=== PATIENT | female | born 1995 | race Native Hawaiian/Other Pacific Islander ===

== ENCOUNTER 2018-04-09 13:58 | Outpatient (CLI) | payer OTHER | END 2018-04-09 13:59 | disposition home or self-care (01) | LOC: LAB 13:58 | PROVIDERS: ATTEND Obstetrics & Gynecology | DX: Z36.9 Encounter for antenatal screening, unspecified (principal) | CPT/HCPCS: 36415; 82950; 85018; 86850 ==

== ENCOUNTER 2018-05-10 06:08 | Outpatient (CLI) | payer OTHER ==
[2018-05-10] MEDS ORDERED: HYDROcod/ACETAM 5/325 MG TABLET PO SCH (07:00)
[2018-05-10 07:07] LABS: RUPTURE OF MEMBRANES PLUS NEGATIVE (NEGATIVE)
[2018-05-10 07:31] VITALS: BP 103/71
[2018-05-10 08:10] LABS: BILIRUBIN,URINE NEGATIVE (NEGATIVE); GLUCOSE, URINE (UA) NEGATIVE (NEGATIVE); KETONES,URINE (UA) NEGATIVE (NEGATIVE); LEUKOCYTE ESTERASE, URINE NEGATIVE (NEGATIVE); NITRITE,URINE NEGATIVE (NEGATIVE); OCCULT BLOOD,URINE NEGATIVE (NEGATIVE); PROTEIN,URINE NEGATIVE (NEGATIVE); UROBILINOGEN,URINE 1 (NORMAL) E.U./dL (NORMAL)
[2018-05-10 08:18] LABS: CLARITY,URINE CLEAR (CLEAR)
[2018-05-10 08:21] LABS: BACTERIA,URINE Rare /HPF (None Seen); RBC,URINE None Seen /HPF (0-5); SQUAMOUS EPITHELIAL CELL,UR FEW Squamous (<= Few)
== END 2018-05-10 08:00 | disposition home or self-care (01) ==
LOC: WFO 06:08 → FBP 06:10 → WFO 08:00
PROVIDERS: ATTEND Obstetrics & Gynecology
DX: O26.893 Other specified pregnancy related conditions, third trimester (principal); R10.2 Pelvic and perineal pain; Z3A.37 37 weeks gestation of pregnancy
CPT/HCPCS: 81001; 84112; 87797; 99213; A9270; 87086

== ENCOUNTER 2018-05-19 06:55 | Inpatient (IN) | payer OTHER ==
[2018-05-19] MEDS ORDERED: SODIUM CHLORIDE FLUSH 0.9% 10 ML SYRINGE ONE (07:02)
[2018-05-19] MEDS ORDERED: SODIUM CHLORIDE FLUSH 0.9% 10 ML SYRINGE IVP PRN (07:15)
[2018-05-19] MEDS ORDERED: PENICILLIN G POTASSIUM 5,000,000 UNIT in SODIUM CHLORIDE 0.9% MINIBAG 100 ML IV ONE (07:15)
[2018-05-19] MEDS ORDERED: fentaNYL 100 MCG/2 ML VIAL IVP PRN (07:15)
[2018-05-19] MEDS ORDERED: LACTATED RINGERS 1,000 ML IV ONE (07:24)
[2018-05-19 07:27] LABS: BASOPHILS # (AUTO) 0.1 10^3/uL (0.0-0.1); BASOPHILS % (AUTO) 1.1 %; EOSINOPHILS # (AUTO) 0.4 10^3/uL (0.0-0.7); EOSINOPHILS % (AUTO) 3.3 %; HGB - HEMOGLOBIN 10.8 g/dL (12.0-16.0); LYMPHOCYTES % (AUTO) 25.2 %; MEAN CORPUSCULAR HEMOGLOBIN 25.5 pg (27.0-31.0); MEAN CORPUSCULAR HGB CONC 32.9 g/dL (32.0-36.0); MEAN CORPUSCULAR VOLUME 77.6 fL (81.0-99.0); MEAN PLATELET VOLUME 6.7 fL (7.9-10.8); MONOCYTES # (AUTO) 0.9 10^3/uL (0.0-1.0); MONOCYTES % (AUTO) 7.4 %; NEUTROPHILS # (AUTO) 7.6 10^3/uL (1.5-6.6); PLT - PLATELET COUNT 406 10^3/uL (130-450); RED BLOOD COUNT 4.24 10^6/uL (4.20-5.40); RED CELL DISTRIBUTION WIDTH 14.9 % (12.0-15.0); WHITE BLOOD COUNT 12.1 x10^3/uL (4.8-10.8)
[2018-05-19] MEDS ORDERED: LACTATED RINGERS 1,000 ML IV SCH (08:00)
[2018-05-19] MEDS ORDERED: SODIUM CHLORIDE FLUSH 0.9% 10 ML SYRINGE IVP SCH (09:00)
[2018-05-19] MEDS ORDERED: miSOPROStol 200 MCG TABLET ONE (09:10)
[2018-05-19] MEDS ORDERED: MINERAL OIL LIGHT 10 ML MC ONE (09:10)
[2018-05-19] MEDS ORDERED: OXYTOCIN/SODIUM CHLORIDE 500 ML IV ONE (09:10)
[2018-05-19] MEDS ORDERED: LIDOCAINE 1% 50 ML MDV ONE (09:10)
[2018-05-19] MEDS ORDERED: HYDROCORTISONE/PRAMOXINE 10 GM PR PRN (11:04)
[2018-05-19] MEDS ORDERED: ONDANSETRON ODT 4 MG TABLET TL PRN (11:04)
[2018-05-19] MEDS ORDERED: OXYTOCIN/SODIUM CHLORIDE 250 ML IV ONE (11:04)
[2018-05-19] MEDS ORDERED: diphenhydrAMINE 25 MG CAPSULE PO PRN (11:04)
[2018-05-19] MEDS ORDERED: WITCH HAZEL/GLYCERIN 1 EACH MED..PAD TOP PRN (11:04)
[2018-05-19] MEDS: IBUPROFEN 600 MG TABLET PO PRN ×2 (11:25→19:22)
[2018-05-19] MEDS: ACETAMINOPHEN 500 MG TABLET PO PRN ×2 (11:25→20:29)
--- NOTE | 2018-05-19 11:59 | HISTORY & PHYSICAL EXAMINATION ---
DATE OF SERVICE: 05/19/2018 Physician: Chloe Carrillo MD ADMISSION DIAGNOSES 1. Intrauterine at 38 weeks and 3 days. 2. Spontaneous labor. 3. Group B strep positive. CHIEF COMPLAINT: Contractions. HISTORY OF PRESENT ILLNESS: Began having contractions last night. No leaking, no bleeding. She was feeling movement. In triage, she was checked and found to be 6 cm dilated. PAST MEDICAL HISTORY: Negative. PAST SURGICAL HISTORY: Negative. ALLERGIES: NO KNOWN DRUG ALLERGIES. MEDICATIONS: vitamins daily. SOCIAL HISTORY: No tobacco, alcohol, or drug use. The patient is from [place] and has been moved a round with the [place]. Her is here and she anticipates good support from him. FAMILY HISTORY: No anesthesia problems. REVIEW OF SYSTEMS: No fevers. OBSTETRIC HISTORY: The patient is a G3, P2-0-0-2, with a due date of 05/30/2018 by a 7-week ultrasou nd that was off 1 month from her last menstrual period. She received her early care in [place] and then transferred care here at 32 weeks when she moved. Her care has been uncomplicated, her OB labs were normal. She is status post Tdap vaccination. She declined tubal ligation. She does h ave a history of a forceps-assisted vaginal delivery with her firstborn. OBJECTIVE GENERAL: The patient is afebrile with normal vital signs. She is frowning and moaning through her c ontractions. ABDOMEN: Soft, gravid, and nontender. Sterile vaginal examination is 9 cm dilated, 100% effaced, an d 0 station. NST was category 2 when I walked in the room. This improved with position changes and oxygen. It was category 2 due to variable decelerations. Currently, the patient is having a normal baseline of 140 beats per minute with moderate long-term variability present, accelerations are prese nt. She is having episodes of broken tracing that do not appear to be decelerations. [place] is not pi cking up well. IMPRESSION AND PLAN A 22-year-old G3, P2-0-0-2 at 38 weeks and 3 days by 7-week ultrasound with spontaneous active labor, now 9 cm. 1. Labor: Anticipate spontaneous vaginal delivery. The category 2 tracing has resolved. The patie nt has declined pain medicine. 2. Group B strep positive. She has received her first dose of penicillin prophylaxis and she is unl ikely to make dose #2, so Peds will be notified. 3. Potential issues: None identified. The patient is Rh positive, rubella immune, and h as received her Tdap vaccine. TD: 05/19/2018 10:32
--- NOTE | 2018-05-19 13:37 | OPERATIVE REPORT ---
DATE OF SERVICE: 05/19/2018 Physician: Chloe Carrillo MD PROCEDURE: Spontaneous vaginal delivery at term. PREDELIVERY DIAGNOSES 1. Intrauterine at term. 2. Active spontaneous labor. 3. Group B strep positive. POSTDELIVERY DIAGNOSIS: Status post spontaneous vaginal delivery at term. ANESTHESIA: None. ESTIMATED BLOOD LOSS: 250 mL. FINDINGS 1. Liveborn male, Apgars 8 at one minute and 9 at five minutes. 2. Clear amniotic fluid. 3. Normal placenta with a 3-vessel cord. 4. Superficial abrasion at the introitus not requiring repair. LABOR COURSE: Patient presented in spontaneous labor at 6 cm. She had a category 1 tracing and decl ined any pain measures other than comfort measures. She had urges to push starting at 9 cm and she w as able to wait to push until she became complete. DELIVERY: The patient pushed for 2 contractions to deliver OA over an intact perineum. There was no nuchal cord. The shoulders and body were easily delivered. The baby was placed on mom's abdomen fo r warming, drying, and stimulation. The umbilical cord was left intact until it stopped pulsating at about the 2-minute zhang. It was clamped x2 and cut. Cord blood was obtained for typing and then th e cord was drained. Pitocin was started for active management in the placenta. The placenta was del ivered approximately 4 minutes later intact with a maternal push. Inspection revealed the superficia l laceration that did not require repair. ANTICIPATED COURSE: The patient is a healthy multip, who plans to breastfeed. She is Rh positive, rubella immune and is status post Tdap. No issues identified. TD: 05/19/2018 12:01
[2018-05-19] MEDS ORDERED: SIMETHICONE CHEW 80 MG TABLET PO SCH (14:00)
[2018-05-19] MEDS: DOCUSATE SODIUM 100 MG CAPSULE PO SCH (20:29)
[2018-05-20] MEDS: IBUPROFEN 600 MG TABLET PO PRN (01:26)
[2018-05-20] MEDS: ACETAMINOPHEN 500 MG TABLET PO PRN ×3 (04:29→20:39)
[2018-05-20] MEDS ORDERED: OXYTOCIN/SODIUM CHLORIDE 250 ML IV ONE (09:46)
[2018-05-20] MEDS ORDERED: oxyCODONE 5 MG TABLET PO PRN (09:47)
[2018-05-20] MEDS: CELECOXIB 100 MG CAPSULE PO SCH ×2 (10:18→22:01)
--- NOTE | 2018-05-20 12:08 | PROVIDER PROGRESS NOTE ---
Objective - Vital Signs/Intake & Output Vital Signs: Vital Signs x48h Temp Pulse Resp BP Pulse Ox 05/20/18 09:08 207.1 F H 78 18 114/72 100 05/20/18 08:27 98.4 F 68 18 122/78 100 05/20/18 04:39 98.2 F 66 16 112/62 100 Intake & Output: Intake & Output 05/17/18 05/18/18 05/19/18 05/20/18 23:59 23:59 23:59 23:59 Intake Total 1455 Output Total 451 Balance 1004 - Lab Results Fish Bones: 05/19/18 07:10 Assessment/Plan - Problem List (1) Vaginal delivery Impression: S: Lots of cramping with . Otherwise no problems. Eating, ambulating, urinating well. No heavy bleeding. well. O: AVSS Alert, smiling, NAD Abd soft, gravid, NT Fundus firm, NT, at umbilicus A/P: 22yo P3 PPD # 1 s/p at term. Doing well anticipate routine care. Rh+, RI, s/p Tdap.
[2018-05-20] MEDS: DOCUSATE SODIUM 100 MG CAPSULE PO SCH ×2 (12:38→20:39)
[2018-05-21] MEDS: ACETAMINOPHEN 500 MG TABLET PO PRN ×2 (04:36→15:23)
[2018-05-21] MEDS ORDERED: SODIUM CHLORIDE FLUSH 0.9% 10 ML SYRINGE ONE (05:29)
[2018-05-21] MEDS: CELECOXIB 100 MG CAPSULE PO SCH (08:58)
[2018-05-21] MEDS: DOCUSATE SODIUM 100 MG CAPSULE PO SCH (08:58)
--- NOTE | 2018-05-21 13:32 | Discharge Plan ---
Discharge Plan Disposition: Home, Self Care Condition: Good Prescriptions: Celecoxib [CeleBREX] 200 mg PO BID PRN #30 capsule PRN Reason: Pain Docusate Sodium 100 mg PO BID PRN #60 capsule PRN Reason: to soften stool Sertraline HCl 50 mg PO DAILY #60 tablet Diet: Regular Activity Restrictions: No Restrictions Shower Restrictions: No Driving Restrictions: No Additional Instructions or Follow Up instructions: See written instructions from labor and delivery. No Smoking: If you smoke, Please STOP! Call for help. Follow-up with: Chloe Carrillo MD [Provider Admit Priv/Credential] - 1 Week
--- NOTE | 2018-05-21 13:50 | PROVIDER PROGRESS NOTE ---
Objective - Vital Signs/Intake & Output Vital Signs: Vital Signs x48h Temp Pulse Resp BP Pulse Ox 05/21/18 08:32 98.6 F 76 16 113/70 100 Intake & Output: Intake & Output 05/18/18 05/19/18 05/20/18 05/21/18 23:59 23:59 23:59 23:59 Intake Total 1455 Output Total 451 Balance 1004 - Lab Results Fish Bones: 05/19/18 07:10 Assessment/Plan - Problem List (1) Vaginal delivery Impression: Pt states that she is doing well. Ambulating, urinating, without problems. Cramping is improved with switch to celebrex. No heavy bleeding. Feeling irritable and having bouts of crying in the bathroom. No hx of depression or of PP depression. Did not feel this way after other deliveries. No SI, no HI, no panic, no hallucination. Denies drug use. No FH of suicide or bipolar or schizophrenia. O: AVSS. Pumping breastmilk. NAD. Flat affect. Abd soft, nt/nd. Fundus firm, NT, 1cm below U A/P: P3 PPD #2 s/p at term. Physically doing well. RNs with concerns about pt's bonding with baby. RNs on multiple shifts with similar concerns. Behavior NOT witnessed by me but reported by RN: not not picking up baby who is crying, not willing to bottle feed but also not willing to breastfeed q2h. Not willing to leave the baby on the breast for more than a few minutes. Not burping baby and does not demonstrate that she knows how to burp baby. Baby is jittery. Pt with more irritation and crying more than u sual. Likely component of PPD but could be just blues as well. --Zoloft start post pt permission. --Social work consult --Urine drug tox--pt considering whether or not she will consent to this. Due to jittery baby and bonding problems. Returned to pt room, she consents to u.tox. She admits to chewing tobacco throughout , does not want to start up and declines nicotine replacement. Discussed that that could be contributing a lot to baby's jitteriness and to her irritation. She still declines nicotine replacement. (2) depression Impression: see above
--- NOTE | 2018-05-21 14:54 | PROCEDURE REPORT ---
DATE OF SERVICE: 05/19/2018 Physician: Chloe Carrillo MD PREPROCEDURE DIAGNOSES 1. Intrauterine at 38 weeks and 3 days. 2. Spontaneous labor. 3. Group B strep positive. POSTOPERATIVE DIAGNOSIS: Status post spontaneous vaginal delivery at term. DELIVERING PROVIDER: Chloe Carrillo MD. ESTIMATED BLOOD LOSS: Normal. ANTEPARTUM COURSE: The patient had an uncomplicated antepartum history with normal OB labs. She is status post DTaP vaccination. She is Rh positive, rubella immune, and group B strep positive. LABOR COURSE: The patient was admitted for management of her active spontaneous labor. She delivere d without complications. She received penicillin for her group B strep prophylaxis DELIVERY COURSE: The patient had an urge to push and pushed effectively to deliver OA over an intact perineum. There was no nuchal cord. The shoulders and body were easily delivered. Placenta was de livered intact. The baby was placed on mom's abdomen for warming, drying, and stimulation. The umbi lical cord was left intact, until it stopped pulsating. Then it was clamped x2 by the MD and cut by the father of the baby. Cord blood was obtained for typing, and then the cord blood was drained. Pi tocin was started for active management of the placenta. Inspection revealed a small abrasion at the vaginal introitus that was superficial and hemostatic, not requiring repair. ANTICIPATED COURSE: No potential problems identified. TD: 05/21/2018 13:59
[2018-05-21 15:03] LABS: MUDS CUTOFF CONCENTRATIONS CUTOFF CONC BELOW:
[2018-05-21 15:15] LABS: BILIRUBIN,URINE NEGATIVE (NEGATIVE); GLUCOSE, URINE (UA) NEGATIVE (NEGATIVE); KETONES,URINE (UA) NEGATIVE (NEGATIVE); LEUKOCYTE ESTERASE, URINE TRACE (NEGATIVE); NITRITE,URINE NEGATIVE (NEGATIVE); OCCULT BLOOD,URINE LARGE (NEGATIVE); PH,URINE 6.5 PH (5.0-7.5); PROTEIN,URINE TRACE mg/dL (NEGATIVE); UROBILINOGEN,URINE 0.2 (NORMAL) E.U./dL (NORMAL)
[2018-05-21 15:31] LABS: AMPHETAMINE SCREEN,URINE NEGATIVE (NEGATIVE); BENZODIAZEPINES SCREEN, URINE NEGATIVE (NEGATIVE); CLARITY,URINE SL. CLOUDY (CLEAR); COCAINE SCREEN URINE NEGATIVE (NEGATIVE); METHADONE SCREEN, URINE NEGATIVE (NEGATIVE); METHAMPHETAMINES SCREEN, URINE NEGATIVE (NEGATIVE); OPIATE SCREEN, URINE NEGATIVE (NEGATIVE); OXYCODONE SCREEN, URINE NEGATIVE (NEGATIVE); PROPOXYPHENE SCREEN, URINE NEGATIVE (NEGATIVE); TRICYCLIC ANTIDEPRESSANT,URINE NEGATIVE (NEGATIVE)
[2018-05-21 15:40] LABS: BACTERIA,URINE None Seen /HPF (None Seen); RBC,URINE TNTC /HPF (0-5); SQUAMOUS EPITHELIAL CELL,UR NONE SEEN (<= Few)
[2018-05-21 19:36] VITALS: BP 122/79
--- NOTE | 2018-05-21 20:39 | Labor Flowsheet ---
Labor Flowsheet Datetime Report Generated by CPN: 05/21/2018 20:38 Datetime: 05/21/2018 19:31 VITAL SIGNS NBP Sys/Alethea/Mean (mmHg): 122 : 79 : 89 Pulse: 86 Datetime: 05/21/2018 08:33 SpO2 (%): 100 Datetime: 05/19/2018 10:30 UTERINE ACTIVITY Monitor Mode: External Frequency (min): 2 Quality: Strong Duration (sec): 80-100 Resting Tone (Palpate): Relaxed Contraction Comments: Pushed well, ASSESSMENT A Monitor Mode: [employer] Interventions for FHR: Ultrasound Adjusted FHR Baseline Rate : 150 Variability: Moderate 6-25 bpm Accelerations: 15X15 Decelerations: Variable Category: Category II Comments: of a viable male infant. PATIENT CARE Oxygen Method: Non-Rebreather Stage 2 Comments: male Datetime: 05/19/2018 10:24 Pushing Position: Pushing with Contractions Pushing Progress: Descent with Pushing; Pushing Effectively with Contractions Datetime: 05/19/2018 10:22 VAGINAL EXAM Dilatation (cm): 10.0 Effacement (%): 100 Station: -1 Exam by: T Claus RN Vaginal Bleeding: Normal Show Cervix, Position: Anterior STAGE 2 Pushing: Urge to Push Datetime: 05/19/2018 10:20 Monitor Interventions for UA: [place] Adjusted Datetime: 05/19/2018 10:19 Patient Position/Activity: [place] Patient Care Comments: sitting in throne position Datetime: 05/19/2018 09:50 COMMUNICATION Communication: Provider at Bedside Provider Notified (Name): Dr Tomilson Datetime: 05/19/2018 09:36 Membrane Status: Ruptured Membranes Rupture Method: Spontaneous Amniotic Fluid Color: Clear Amniotic Fluid Amount: Large Amniotic Fluid Odor: Normal Datetime: 05/19/2018 09:20 Communication Comments: Patient feeling pressure and wants to push. SVE, feeling membranes, but pa tient not tolerating vag exam Datetime: 05/19/2018 09:17 Vaginal Exam Comments: Pt feeling pressure, on her side, only feeling membranes Datetime: 05/19/2018 09:00 Pain Assessment Comments: Getting out of tub Comfort Measures: Hot Shower/Tub/Spa Datetime: 05/19/2018 08:35 I/O Interventions: Up to BR Datetime: 05/19/2018 08:20 Cervix, Consistency: Soft Datetime: 05/19/2018 07:57 MEDICATIONS Analgesics/Sedatives: Fentanyl (mcg) @ 50 Datetime: 05/19/2018 07:50 Pain Relief Measures: Comfort Measures Datetime: 05/19/2018 07:40 Respirations: 18 Temperature (C): 37.0 Datetime: 05/19/2018 07:34 PAIN Pain Scale: 9 Pain Presence: Intermittent Pain Type: Cramping Pain Location: Abdomen Medication Comments: Nitrous on
[2018-05-22] MEDS ORDERED: SERTRALINE 25 MG TABLET PO SCH (09:00)
--- NOTE | 2018-05-23 05:31 | DISCHARGE SUMMARY ---
Physician: Chloe Carrillo MD DATE OF ADMISSION: 05/19/2018 DATE OF DISCHARGE: 05/21/2018 ADMISSION DIAGNOSES 1. Intrauterine at 38 weeks and 3 days. 2. Spontaneous labor. 3. Group B streptococcus positive. DISCHARGE DIAGNOSES 1. Status post spontaneous vaginal delivery at term. 2. depression. Patient would like to try an antidepressant, and so Zoloft was started. OPERATIONS AND PROCEDURES: 05/19/2018: Spontaneous vaginal delivery, uncomplicated. HOSPITAL COURSE: Patient was admitted in active spontaneous labor and delivered without difficulty. She received penicillin for her group B strep prophylaxis. Patient's course was remarkable for irritability, tearfulness, and nursing concern for dif ficulty bonding with baby. Patient states that this mood is different from what she has experienced in the past . No history of chronic depression or of depression. Also, she has been using chewing tobacco throughout the and would like to stop at this time, and has not chewed tobacco since her hospital admission. She was offered nicotine replacement to see if that wo uld improve her mood, and she declined. She received a social work consult and was arranged [facility]. By day #2, she was requesting discharge home. She was eating, ambulating, an d urinating without difficulties. She did have a good latch for . No significant pain or bleeding. DISCHARGE EXAMINATION VITAL SIGNS: Afebrile with normal vital signs. GENERAL: Alert and pleasant, in no apparent distress. Patient is making eye contact and her affect is a bit blunt. ABDOMEN: Soft, nontender, nondistended. Fundus firm, nontender 2 cm below the umbilicus. EXTREMITIES: No remarkable lower extremity edema bilaterally. DISCHARGE MEDICATIONS 1. Celebrex b.i.d. p.r.n. pain. 2. vitamins daily. 3. Colace p.r.n. to soften stool. 4. Sertraline 50 mg 1/2 tablet p.o. daily for 7 days, followed by 1 tablet p.o. daily. DISCHARGE INSTRUCTIONS: Routine instructions as given per Labor and Delivery. Also, efrain ent was warned that depression can be life threatening for both her and baby. Advised to call 911 or go to the ER p.r.n. suicidal or homicidal ideation or presence of any hallucination. DISCHARGE DISPOSITION: Home. CONDITION: Good. FOLLOWUP: In [address] Carrillo to recheck mood. TD: 05/23/2018 03:06
== END 2018-05-21 19:45 | disposition home or self-care (01) | DRG 775 ==
LOC: WFO 06:55 → FBP 06:56 → WFO 07:14 → FBP 07:15
PROVIDERS: ADMIT Obstetrics & Gynecology; ATTEND Obstetrics & Gynecology
PROC: 10E0XZZ Delivery of Products of Conception, External Approach (ICD-10-PCS; principal; 2018-05-19)
DX: O99.824 Streptococcus B carrier state complicating childbirth (principal); O70.0 First degree perineal laceration during delivery; F53 Mental and behavioral disorders associated with the puerperium, not elsewhere classified; Z3A.38 38 weeks gestation of pregnancy; Z37.0 Single live birth
CPT/HCPCS: 36415; 80306; 81001; 81003; 85025; 87086; 99213

== ENCOUNTER 2019-11-09 11:00 | Outpatient (CLI) | payer OTHER | END 2019-11-09 23:59 | disposition home or self-care (01) | LOC: LAB.R 11:00 | PROVIDERS: ATTEND Nurse Practitioner Obstetrics & Gynecology | DX: Z32.01 Encounter for pregnancy test, result positive (principal); R30.0 Dysuria | CPT/HCPCS: 87086 ==

== ENCOUNTER 2019-11-16 16:23 | Emergency (ER) | payer OTHER ==
[2019-11-16 16:51] LABS: BILIRUBIN,URINE NEGATIVE (NEGATIVE); GLUCOSE, URINE (UA) NEGATIVE (NEGATIVE); KETONES,URINE (UA) NEGATIVE (NEGATIVE); LEUKOCYTE ESTERASE, URINE NEGATIVE (NEGATIVE); NITRITE,URINE NEGATIVE (NEGATIVE); OCCULT BLOOD,URINE TRACE-INTA (NEGATIVE); PROTEIN,URINE NEGATIVE (NEGATIVE); UROBILINOGEN,URINE 0.2 (NORMAL) E.U./dL (NORMAL)
[2019-11-16 16:53] LABS: BASOPHILS # (AUTO) 0.1 10^3/uL (0.0-0.1); BASOPHILS % (AUTO) 0.4 %; EOSINOPHILS # (AUTO) 0.3 10^3/uL (0.0-0.7); EOSINOPHILS % (AUTO) 1.8 %; HGB - HEMOGLOBIN 14.2 g/dL (12.0-16.0); LYMPHOCYTES # (AUTO) 3.7 10^3/uL (1.5-3.5); LYMPHOCYTES % (AUTO) 25.6 %; MEAN CORPUSCULAR HEMOGLOBIN 28.9 pg (27.0-31.0); MEAN CORPUSCULAR HGB CONC 33.4 g/dL (32.0-36.0); MEAN CORPUSCULAR VOLUME 86.4 fL (81.0-99.0); MONOCYTES # (AUTO) 0.7 10^3/uL (0.0-1.0); MONOCYTES % (AUTO) 4.6 %; NEUTROPHILS # (AUTO) 9.6 10^3/uL (1.5-6.6); NEUTROPHILS % (AUTO) 67.1 %; PLT - PLATELET COUNT 336 10^3/uL (130-450); RED BLOOD COUNT 4.92 10^6/uL (4.20-5.40); RED CELL DISTRIBUTION WIDTH 13.8 % (12.0-15.0); WHITE BLOOD COUNT 14.3 x10^3/uL (4.8-10.8)
[2019-11-16 16:53] LABS: CLARITY,URINE CLEAR (CLEAR)
[2019-11-16 16:54] LABS: HCG UR QUAL POSITIVE
[2019-11-16 17:12] LABS: ALBUMIN 4.1 g/dL (3.2-5.5); ALKALINE PHOSPHATASE 60 IU/L (42-121); ALT ALANINE AMINOTRANSFERASE 28 IU/L (10-60); AST ASPARTATE AMINOTRANSFERASE 21 IU/L (10-42); BILIRUBIN,TOTAL < 0.2 mg/dL (0.2-1.0); BUN - BLOOD UREA NITROGEN 9 mg/dL (6-20); CALCIUM 9.1 mg/dL (8.5-10.3); CARBON DIOXIDE - CO2 24 mmol/L (21-32); CHLORIDE 103 mmol/L (101-111); CREATININE 0.6 mg/dL (0.4-1.0); GFR - MDRD 121 (>89); GLUCOSE 114 mg/dL (70-100); LIPASE 37 U/L (22-51); SODIUM 134 mmol/L (135-145); TOTAL PROTEIN 8.3 g/dL (6.7-8.2)
[2019-11-16 18:39] VITALS: BP 108/74
--- NOTE | 2019-11-16 19:49 | ED Physician Documentation ---
PD HPI ABD PAIN - Stated complaint Stated Complaint: BACK/ABD PX/NAUSEA - Chief complaint Chief Complaint: Abd Pain - History obtained from History obtained from: Patient (the patient is a 24 y/o f who presents with a cc of nausea and abd discomfort. at the time of my initial evaluation the patient is requesting to be discharged home at this time. she is aware that she is . she states her LMP was in September some time. she states she is a . she states she has no pain, no vaginal bleeding, no vaginal discharge and no dysuria an no flank pain. denies hematuria. patient reports she has follow up tomorrow.) Review of Systems Constitutional: reports: Reviewed and negative Eyes: reports: Reviewed and negative Ears: reports: Reviewed and negative Nose: reports: Reviewed and negative Throat: reports: Reviewed and negative Cardiac: reports: Reviewed and negative Respiratory: reports: Reviewed and negative GI: reports: Nausea : reports: Reviewed and negative Skin: reports: Reviewed and negative Musculoskeletal: reports: Reviewed and negative Neurologic: reports: Reviewed and negative Psychiatric: reports: Reviewed and negative Endocrine: reports: Reviewed and negative Immunocompromised: reports: Reviewed and negative PD PAST MEDICAL HISTORY - Past Medical History Past Medical History: No - Past Surgical History Past Surgical History: No - Present Medications Home Medications: Ambulatory Orders Medication Instructions Recorded Confirmed Celecoxib [CeleBREX] 200 mg PO BID PRN #30 capsule 05/21/18 Docusate Sodium 100 mg PO BID PRN #60 capsule 05/21/18 Sertraline HCl 50 mg PO DAILY #60 tablet 05/21/18 - Allergies Allergies/Adverse Reactions: Allergies Allergy/AdvReac Type Severity Reaction Status Date / Time No Known Drug Allergies Allergy Verified 11/16/19 16:31 - Social History Does the pt smoke?: No Smoking Status: Never smoker Does the pt drink ETOH?: No Does the pt have substance abuse?: No - Immunizations Immunizations are current?: Yes - POLST Patient has POLST: No PD ED PE NORMAL - Vitals Vital signs reviewed: Yes - General General: Alert and oriented X 3, No acute distress - HEENT HEENT: PERRL - Neck Neck: Supple, no meningeal sign - Cardiac Cardiac: RRR, No murmur - Respiratory Respiratory: No respiratory distress, Clear bilaterally - Abdomen Abdomen: Normal bowel sounds, Soft, Non tender, Non distended, No organomegaly - Female Female : Pt declined - Back Back: No CVA TTP - Derm Derm: Warm and dry - Extremities Extremities: No deformity - Neuro Neuro: Alert and oriented X 3 - Psych Psych: Normal mood, Normal affect Results - Vitals Vitals: Vital Signs - 24 hr 11/16/19 11/16/19 11/16/19 16:31 18:38 19:12 Temperature 36.6 C 36.6 C Heart Rate 77 73 Respiratory 16 20 16 Rate Blood Pressure 110/75 108/74 O2 Saturation 99 100 Oxygen O2 Source Room air - Labs Labs: Laboratory Tests 11/16/19 11/16/19 11/16/19 16:42 16:42 16:46 WBC 14.3 H RBC 4.92 Hgb 14.2 Hct 42.5 MCV 86.4 MCH 28.9 MCHC 33.4 RDW 13.8 Plt Count 336 MPV 9.0 Neut # (Auto) 9.6 H Lymph # (Auto) 3.7 H [place] # (Auto) 0.7 Eos # (Auto) 0.3 Baso # (Auto) 0.1 Absolute Nucleated RBC 0.00 Nucleated RBC % 0.0 Sodium Potassium Chloride Carbon Dioxide Anion Gap BUN Creatinine Estimated GFR (MDRD) Glucose Calcium Total Bilirubin AST ALT Alkaline Phosphatase Total Protein Albumin Globulin Albumin/Globulin Ratio Lipase Urine Color YELLOW Urine Clarity CLEAR Urine pH 6.0 Ur Specific Guild 1.015 1.015 Urine Protein NEGATIVE Urine Glucose (UA) NEGATIVE Urine Ketones NEGATIVE Urine Occult Blood TRACE-INTA Urine Nitrite NEGATIVE Urine Bilirubin NEGATIVE Urine Urobilinogen 0.2 (NORMAL) Ur Leukocyte Esterase NEGATIVE Ur Microscopic Review NOT INDICATED Urine Culture Comments NOT INDICATED Urine HCG, Qual POSITIVE 11/16/19 16:46 WBC RBC Hgb Hct MCV MCH MCHC RDW Plt Count MPV Neut # (Auto) Lymph # (Auto) [place] # (Auto) Eos # (Auto) Baso # (Auto) Absolute Nucleated RBC Nucleated RBC % Sodium 134 L Potassium 3.6 Chloride 103 Carbon Dioxide 24 Anion Gap 7.0 BUN 9 Creatinine 0.6 Estimated GFR (MDRD) 121 Glucose 114 H Calcium 9.1 Total Bilirubin < 0.2 L AST 21 ALT 28 Alkaline Phosphatase 60 Total Protein 8.3 H Albumin 4.1 Globulin 4.2 Albumin/Globulin Ratio 1.0 Lipase 37 Urine Color Urine Clarity Urine pH Ur Specific Guild Urine Protein Urine Glucose (UA) Urine Ketones Urine Occult Blood Urine Nitrite Urine Bilirubin Urine Urobilinogen Ur Leukocyte Esterase Ur Microscopic Review Urine Culture Comments Urine HCG, Qual PD MEDICAL DECISION MAKING - ED course Complexity details: d/w patient (labs and evaluation discussed with patient. i recommended a formal TVUS, the patient is refusing and is requesting to be discharged home at this time. she has medical decision making capability and capacity and assumes all risks to include any adverse outcome to the patient or the fetus. ) Departure - Departure Disposition: 01 Home, Self Care Clinical Impression: Qualifiers: Weeks of gestation: unspecified Qualified Code(s): Z34.90 - Encounter for supervision of normal , unspecified, unspecified trimester Condition: Good Instructions: ED Preg Established Normal Sxs Follow-Up: YOUR, DOCTOR [Other] - Tomorrow
== END 2019-11-16 20:06 | disposition home or self-care (01) ==
LOC: ED 16:23
DX: O99.89 Other specified diseases and conditions complicating pregnancy, childbirth and the puerperium (principal); R11.0 Nausea; Z3A.00 Weeks of gestation of pregnancy not specified
CPT/HCPCS: 36415; 80053; 81001; 81003; 81025; 83690; 84702; 85025; 87086; 99283; 99284

== ENCOUNTER 2019-11-18 17:00 | Outpatient (CLI) | payer OTHER ==
--- NOTE | 2019-11-19 16:57 | Ultrasound Report ---
Reason: POSITIVE TEST Procedure Date: 11/18/2019 Accession Number: [id number] / [id number] Procedure: US - OB First Trimester CPT Code: Final Report FULL RESULT: EXAM: FIRST TRIMESTER OBSTETRIC ULTRASOUND (Less than 11 weeks) EXAM DATE: 11/18/2019 05:27 PM. CLINICAL HISTORY: POSITIVE TEST. LMP: Unknown. COMPARISONS: None. TECHNIQUE: Transabdominal and transvaginal ultrasound examination with static image documentation. ASSESSMENT: Gestational Sac: Single intrauterine. Mean gestational sac diameter: 19 mm = 6 weeks 6 days. Embryo: CRL (crown-rump length) 8 mm = 6 weeks 5 days. Cardiac activity: 115 beats per minute. Yolk sac: 4 mm. Amniotic fluid: Not accurately assessed at this gestational age. Early placenta: Not visible at this gestational age. Other: No perigestational fluid collection demonstrated. MATERNAL STRUCTURES: Uterus: Anteverted. There is an asymmetry in the uterine wall suspicious for an intramural fibroid measuring 2.5 x 3.1 x 3.3 cm.. Cervix: Closed. Right Ovary/Adnexa: The ovary measures 3.1 x 1.8 x 1.9 cm, volume 5.5 cc. Unremarkable. Left Ovary/Adnexa: The ovary measures 2.8 x 2.0 x 2.8 cm, volume 8.2 cc. There is a corpus luteum measuring 2 x 1.9 x 1.1 cm. Free Fluid: None. Other: None. IMPRESSION: 1. Single viable intrauterine with ultrasound age based on crown-rump length of 6 weeks 5 days and ultrasound EDC 07/08/2020. 2. Probable intramural uterine fibroid.. RADIA
== END 2019-11-18 17:01 | disposition home or self-care (01) ==
LOC: DI 17:00
PROVIDERS: ATTEND Nurse Practitioner Obstetrics & Gynecology
DX: Z32.01 Encounter for pregnancy test, result positive (principal)
CPT/HCPCS: 76801; 76817

== ENCOUNTER 2019-12-08 07:00 | Outpatient (CLI) | payer OTHER ==
[2019-12-08 20:14] LABS: TRICHOMONAS VAGINALIS DNA NEGATIVE (NEGATIVE)
== END 2019-12-08 23:59 | disposition home or self-care (01) ==
LOC: LAB.R 07:00
PROVIDERS: ATTEND Obstetrics & Gynecology
DX: Z11.3 Encounter for screening for infections with a predominantly sexual mode of transmission (principal)
CPT/HCPCS: 87491; 87591; 87661

== ENCOUNTER 2019-12-26 16:09 | Outpatient (CLI) | payer OTHER ==
--- NOTE | 2019-12-26 18:54 | Ultrasound Report ---
Reason: ABDOMINAL PAIN, PELVIC PAIN, ACUTE, SUPER OF SOFIA Procedure Date: 12/26/2019 Accession Number: [id number] / [id number] Procedure: US - OB First Trimester CPT Code: Addended Final Report FULL RESULT: EXAM: OBSTETRICAL ULTRASOUND, 11-14 weeks EXAM DATE: 12/26/2019 04:16 PM. CLINICAL HISTORY: Pelvic pain. LMP: Unknown. COMPARISON: OB FIRST TRIMESTER 11/18/2019 5:27 PM. TECHNIQUE: Transabdominal ultrasound examination with static image documentation. DATING: EGA 12 weeks 1 day with BERNARD 07/08/2020 based on initial ultrasound 11/18/2019. EGA 12 weeks 1 day with BERNARD 07/08/2020 based on the current ultrasound. ASSESSMENT: Single viable intrauterine fetus. CRL (crown-rump length): 56 mm = 08/07/2020. Cardiac activity: 169 beats per minute. Placenta: Posterior location. Amniotic fluid: Subjectively normal. Other: No perigestational fluid collection demonstrated. MATERNAL STRUCTURES: Uterus: Anteverted. Anterior fibroid 4.1 x 4.4 x 4.6 cm, otherwise unremarkable. Cervix: Closed, 5.5 cm long on transabdominal imaging. Right Ovary/Adnexa: Unremarkable. The ovary measures 2.7 x 2.0 x 2.0 cm, volume 5.8 cc. Left Ovary/Adnexa: Corpus luteum noted 1.1 x 1.9 x 1.3 cm, otherwise unremarkable. The ovary measures 3.4 x 1.7 x 2.2 cm, volume 6.8 cc. Free Fluid: None. Other: None. IMPRESSION: 1. Single viable intrauterine fetus with gestational age 12 weeks 1 day based on initial ultrasound. 2. size is appropriate for assigned dating. 3. Anterior fibroid noted, 4.1 x 4.4 x 4.6 cm. Note: Detailed anatomic survey at 18-22 weeks is recommended for all fetuses evaluated prior to 18 weeks, as some structural abnormalities may be inapparent at earlier gestational ages. GAYATHRIA The call report notification system was initiated by Dr. Shoaib Waggoner at 06:52 PM on 12/26/2019. ADDENDUM: 12/26/19 18:55 The above call report findings were discussed with Christel Alva by Dr. Shoaib Waggoner at 06:55 PM on 12/26/2019.
== END 2019-12-26 16:10 | disposition home or self-care (01) ==
LOC: DI 16:09
PROVIDERS: ATTEND Obstetrics & Gynecology
DX: O34.11 Maternal care for benign tumor of corpus uteri, first trimester (principal); D25.9 Leiomyoma of uterus, unspecified; Z3A.12 12 weeks gestation of pregnancy
CPT/HCPCS: 76801

== ENCOUNTER 2020-02-06 16:41 | Outpatient (CLI) | payer OTHER ==
--- NOTE | 2020-02-07 17:28 | Ultrasound Report ---
Reason: NORMAL SUPERVISION Procedure Date: 02/06/2020 Accession Number: [id number] / [id number] Procedure: US - OB Detailed Eval CPT Code: Final Report FULL RESULT: PROCEDURE: OB Detailed Eval INDICATIONS: NORMAL SUPERVISION OUTSIDE/PRIOR DATING DATA: Last menstrual period (LMP): Unknown. First dating scan (date and location): 11/18/19. Estimated date of delivery (BERNARD) from first dating scan: 07/08/20. TECHNIQUE: Real-time scanning was performed of the fetus, with image documentation and biometric measurements. COMPARISON: 12/26/19, 11/18/19. FINDINGS: General: A single living intrauterine gestation is present. Presentation: Variable Placenta: Placental position is posterior, without previa. Amniotic fluid index: 16.2 cm, 75th percentile for gestational age. heart rate: 140 beats per minute. Maternal cervical canal: 9.6 cm long; normal length is 2.5 cm or more. biometrics: Biparietal diameter: 4.4 cm, 19 weeks 1 day Head circumference: 15.9 cm, 18 weeks 5 days Abdominal circumference: 14 cm, 19 weeks 3 days Femur length: 2.7 cm, 18 weeks 3 days Estimated gestational age from initial scan: 18 weeks 1 day Composite gestational age from present scan: 18 weeks 6 days Estimated weight and percentile: 263 g, 87th percentile Measurement variability in biometric dating: +/- 10 days from 12-20 weeks gestation, +/- 2 weeks from 20-30 weeks gestation, +/- 3 weeks at 30 weeks gestation or later. Anatomic survey: Neuro: Ventricles are normal at less than 10 mm. Cisterna magna and cerebellum were incompletely evaluated. Nuchal skin fold: Not evaluated. Face: Nose and lips, facial profile are visualized, with slightly suboptimal visualization of the lips. Spine: Not well seen. Heart: 4-chambered heart is present. The left ventricular outflow tract appears within normal limits. The right ventricular outflow tract was not well seen. Diaphragm: Diaphragm is intact. Stomach: Left-sided stomach is present. Kidneys: No hydronephrosis. Normal is less than 5 mm in 2nd trimester, less than 7 mm in 3rd trimester. Cord: 3 vessel cord has orthotopic insertion. Bladder: Not evaluated. Extremities: Not evaluated. IMPRESSION: 1. Single living intrauterine demonstrating appropriate interval growth with estimated weight at the 87th percentile. 2. Incomplete anatomic survey. Patient was unable to remain for the duration of the study. In addition evaluation was also limited by early gestational age. Recommend a repeat study in 2-4 weeks for further evaluation. Reviewed by: Farzad Fatima MD on 02/07/2020 12:02 PM PDT Approved by: Farzad Fatima MD on 02/07/2020 12:02 PM PDT Station ID: [id number]
== END 2020-02-06 16:42 | disposition home or self-care (01) ==
LOC: DI 16:41
PROVIDERS: ATTEND Obstetrics & Gynecology
DX: Z34.92 Encounter for supervision of normal pregnancy, unspecified, second trimester (principal)
CPT/HCPCS: 76811

== ENCOUNTER 2020-02-28 18:00 | Outpatient (CLI) | payer OTHER ==
--- NOTE | 2020-03-01 17:01 | Ultrasound Report ---
PROCEDURE: OB F/U or Repeat INDICATIONS: COMPLETE ANATOMY SCAN OUTSIDE/PRIOR DATING DATA: Last menstrual period (LMP): Unknown. LMP-based estimated date of delivery (BERNARD): Unknown. First dating scan (date and location): 11/18/2019 Estimated date of delivery (BERNARD) from first dating scan: 07/08/2020.. TECHNIQUE: Real-time scanning was performed of the fetus, with image documentation and biometric measurements. COMPARISON: OB ultrasound 02/06/2020, 12/26/2019 FINDINGS: General: A single living intrauterine gestation is present. Presentation: Transverse Placenta: Placental position is fundal posterior, without previa. Amniotic fluid index: MVP 5.8 cm heart rate: 153 beats per minute. Maternal cervical canal: 3.9 cm long; normal length is 2.5 cm or more. Anatomic survey: Neuro: Ventricles are non-dilated at less than 10 mm. Cisterna magna is normal at 3-11 mm. Cerebel lum is normal in size and morphology. Nuchal skin fold: Normal at less than 6 mm between 14-20 weeks gestational age. Face: Nose and lips, facial profile are normal. Spine: No evidence for spina bifida. Heart: 4-chambered heart is present, with normal ventricular outflow tracts. Diaphragm: Diaphragm is intact. Stomach: Left-sided stomach is present. Kidneys: No hydronephrosis. Normal is less than 5 mm in 2nd trimester, less than 7 mm in 3rd trimester. Cord: 3-vessel cord has orthotopic insertion. Bladder: Normal in size. Extremities: All 4 extremities identified. Other: Ultrasound age 21 weeks 2 days based on initial ultrasound. IMPRESSION: 1. Single live intrauterine with ultrasound gestational age of 21 weeks 2 days. 2. Anatomy is within normal limits. Reviewed by: Ro Colin MD on 03/01/2020 5:00 PM PDT Approved by: Ro Colin MD on 03/01/2020 5:00 PM PDT Station ID: [id number]
== END 2020-02-28 18:01 | disposition home or self-care (01) ==
LOC: DI 18:00
PROVIDERS: ATTEND Obstetrics & Gynecology
DX: Z34.90 Encounter for supervision of normal pregnancy, unspecified, unspecified trimester (principal)
CPT/HCPCS: 76816

== ENCOUNTER 2020-04-19 07:46 | Outpatient (CLI) | payer OTHER ==
[2020-04-19 09:02] LABS: HGB - HEMOGLOBIN 11.2 g/dL (12.0-16.0); MEAN CORPUSCULAR HEMOGLOBIN 28.1 pg (27.0-31.0); MEAN CORPUSCULAR HGB CONC 32.3 g/dL (32.0-36.0); MEAN CORPUSCULAR VOLUME 87.2 fL (81.0-99.0); MEAN PLATELET VOLUME 8.7 fL (7.9-10.8); RED BLOOD COUNT 3.98 10^6/uL (4.20-5.40); RED CELL DISTRIBUTION WIDTH 12.6 % (12.0-15.0); WHITE BLOOD COUNT 13.6 x10^3/uL (4.8-10.8)
== END 2020-04-19 07:47 | disposition home or self-care (01) ==
LOC: LAB 07:46
PROVIDERS: ATTEND Obstetrics & Gynecology
DX: Z34.90 Encounter for supervision of normal pregnancy, unspecified, unspecified trimester (principal)
CPT/HCPCS: 36415; 82728; 82950; 85027

== ENCOUNTER 2020-04-23 07:19 | Outpatient (CLI) | payer OTHER ==
[2020-04-23 07:39] VITALS: BP 112/74
[2020-04-23] MEDS ORDERED: LACTATED RINGERS 1,000 ML IV ONE (08:13)
[2020-04-23] MEDS ORDERED: ONDANSETRON 4 MG/2 ML VIAL IVP PRN (08:25)
[2020-04-23] MEDS ORDERED: LACTATED RINGERS 500 ML IV STA (08:25)
[2020-04-23 08:40] LABS: BASOPHILS % (AUTO) 0.3 %; EOSINOPHILS # (AUTO) 0.2 10^3/uL (0.0-0.7); EOSINOPHILS % (AUTO) 1.4 %; HGB - HEMOGLOBIN 11.5 g/dL (12.0-16.0); LYMPHOCYTES # (AUTO) 2.6 10^3/uL (1.5-3.5); LYMPHOCYTES % (AUTO) 18.7 %; MEAN CORPUSCULAR HEMOGLOBIN 27.8 pg (27.0-31.0); MEAN CORPUSCULAR HGB CONC 32.3 g/dL (32.0-36.0); MEAN CORPUSCULAR VOLUME 86.2 fL (81.0-99.0); MEAN PLATELET VOLUME 8.8 fL (7.9-10.8); MONOCYTES # (AUTO) 0.9 10^3/uL (0.0-1.0); MONOCYTES % (AUTO) 6.5 %; NEUTROPHILS % (AUTO) 71.3 %; PLT - PLATELET COUNT 361 10^3/uL (130-450); RED BLOOD COUNT 4.13 10^6/uL (4.20-5.40); RED CELL DISTRIBUTION WIDTH 12.7 % (12.0-15.0); WHITE BLOOD COUNT 14.1 x10^3/uL (4.8-10.8)
[2020-04-23 08:58] LABS: CREATININE 0.6 mg/dL (0.4-1.0)
[2020-04-23 10:04] LABS: BILIRUBIN,URINE NEGATIVE (NEGATIVE); GLUCOSE, URINE (UA) NEGATIVE (NEGATIVE); KETONES,URINE (UA) 15 mg/dL (NEGATIVE); LEUKOCYTE ESTERASE, URINE NEGATIVE (NEGATIVE); NITRITE,URINE NEGATIVE (NEGATIVE); OCCULT BLOOD,URINE NEGATIVE (NEGATIVE); PROTEIN,URINE NEGATIVE (NEGATIVE); UROBILINOGEN,URINE 0.2 (NORMAL) E.U./dL (NORMAL)
[2020-04-23 10:13] LABS: CLARITY,URINE CLEAR (CLEAR)
--- NOTE | 2020-04-23 11:16 | PREOP HISTORY & PHYSICAL ---
DATE OF SERVICE: 04/23/2020 Physician: Calvin Cervantes MD IDENTIFICATION: The patient is a 24-year-old. She is G4, P3. Her EDC is 07/08/2020. This makes her 29 weeks EGA. CHIEF COMPLAINT: Nausea and vomiting. HISTORY OF PRESENT ILLNESS: Patient came to work and had a single episode of nausea and vomiting. She has had problems with nausea and vomiting at the early portion of that resolved. She denies any abdominal pain or family history of anybody else in the family with nausea and vomiting. She denies any exposure to people at high risk for COVID. She denies any large crowds. Her OB history is positive for 3 deliveries, which ranged from 39 to 41 weeks. These have all been uneventful. Her OB labs show her negative for any STIs. Her blood type is AB positive. She is rubella immune. She has had confirmation of her due date at 12 weeks as well as 21 weeks. PAST MEDICAL HISTORY: Patient denies any hypertensive, diabetic or pulmonary disease. SURGICAL HISTORY: Negative. SOCIAL HISTORY: Patient lives with her . 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 She lives in a safe home environment. HABITS: Never smoked. FAMILY HISTORY: Positive for diabetes in a grandmother. PHYSICAL EXAMINATION GENERAL: A well-developed, well-nourished female, in no acute distress. VITAL SIGNS: Stable. HEART: Regular rate and rhythm without murmurs. LUNGS: Lung perez are clear without rales or wheezes. ABDOMEN: Soft. There is no tenderness on the right or mid quadrant on the right-hand side. The uterus is nontender. She has negative contractions. She has an that is moving well, difficult to keep on the monitor. PELVIC: Her cervical examination shows cervix, which is long, closed, and presenting part is high. LABORATORY DATA CBC on admission: White count is 14,000, hemoglobin was 11.5, hematocrit 36. Her platelets are 361. Her chemistry is normal. Glucose is 102. However, she does note to have high ketones. IMPRESSION: A 24-year-old G4, P3 with a single episode of nausea and vomiting. Following discussing these symptoms with the hospitalist, it was recommended that a COVID test be obtained. This was obtained at this time. Patient will go home and not return to work until her test is returned. If it is negative, she may return at that time. If it is positive, we will have to treat appropriately. TD: 04/23/2020 10:43 LADI
== END 2020-04-23 10:54 | disposition home or self-care (01) ==
LOC: WFO 07:19 → FBP 07:20 → WFO 10:54
PROVIDERS: ATTEND Obstetrics & Gynecology
DX: O21.2 Late vomiting of pregnancy (principal); Z20.828 Contact with and (suspected) exposure to other viral communicable diseases; Z3A.29 29 weeks gestation of pregnancy
CPT/HCPCS: 80048; 81003; 85025; 87635; 96374; J7120; 81001; 87086; 99214

== ENCOUNTER 2020-05-09 07:36 | Outpatient (CLI) | payer OTHER | END 2020-05-09 07:37 | disposition home or self-care (01) | LOC: LAB 07:36 | PROVIDERS: ATTEND Obstetrics & Gynecology | DX: O99.810 Abnormal glucose complicating pregnancy (principal) | CPT/HCPCS: 36415; 82951; 82952 ==

== ENCOUNTER 2020-05-22 21:22 | Outpatient (CLI) | payer OTHER ==
--- NOTE | 2020-05-23 08:22 | Ultrasound Report ---
PROCEDURE: Duplex Ext Veins Right INDICATIONS: RIGHT LEG SWELLING,EDEMA, TECHNIQUE: Real-time imaging, as well as color and pulse Doppler interrogation, were performed of the lower extr emity deep veins from the inguinal ligament to the popliteal fossa. COMPARISON: None. FINDINGS: The deep veins are normally compressible, and free of intraluminal thrombus. Color and pu lse Doppler demonstrate normal phasic intraluminal flow. There is normal augmentation response to di stal compression maneuver. IMPRESSION: No deep venous thrombosis. Occult injury Reviewed by: Ro Colin MD on 05/23/2020 8:20 AM PDT Approved by: Ro Colin MD on 05/23/2020 8:20 AM PDT Station ID: [id number]
== END 2020-05-22 21:23 | disposition home or self-care (01) ==
LOC: DI 21:22
PROVIDERS: ATTEND Obstetrics & Gynecology
DX: O99.719 Diseases of the skin and subcutaneous tissue complicating pregnancy, unspecified trimester (principal); L53.9 Erythematous condition, unspecified; O99.89 Other specified diseases and conditions complicating pregnancy, childbirth and the puerperium; R22.41 Localized swelling, mass and lump, right lower limb

== ENCOUNTER 2020-06-05 07:00 | Outpatient (CLI) | payer OTHER | END 2020-06-05 23:59 | disposition home or self-care (01) | LOC: LAB.R 07:00 | PROVIDERS: ATTEND Obstetrics & Gynecology | DX: Z36.85 Encounter for antenatal screening for Streptococcus B (principal) | CPT/HCPCS: 81599; 87491; 87591; 87797 ==

== ENCOUNTER 2020-06-21 17:38 | Outpatient (CLI) | payer OTHER ==
[2020-06-21 18:13] VITALS: BP 140/82
--- NOTE | 2020-06-24 11:57 | PROCEDURE REPORT ---
- HPI Diagnosis/Indication for NST: Decreased movement Current EDU 07/08/20 Gestation 37 Weeks and 4 Days 4 Para 3 Vital Signs Temperature 98.4 F 06/21/20 17:56 Heart Rate 106 H 06/21/20 17:56 Respiratory Rate 20 06/21/20 17:56 Blood Pressure 140/82 H 06/21/20 17:56 O2 Saturation 100 06/21/20 17:56 Temperature 98.4 F 06/21/20 17:56 Heart Rate 106 H 06/21/20 17:56 Respiratory Rate 20 06/21/20 17:56 Blood Pressure 140/82 H 06/21/20 17:56 O2 Saturation 100 06/21/20 17:56 - NST Procedure Start 17:53 Stop 18:39 EFM 130 mod britton 15x15 accels no decels TOCO: quiet RN EXAM: Abdomen palpates soft. movement noted by RN on palpation. SVE: 0/25/-3. MSE done - Results and Plan Findings/Impression: 24 yo at 37+4 wga with decreased FM Cat I tracing Palpable movement Patient reassured DC to home with warning signs reviewed Routine OB care
== END 2020-06-21 18:45 | disposition home or self-care (01) ==
LOC: WFO 17:38 → FBP 17:39 → WFO 18:45
PROVIDERS: ATTEND Obstetrics & Gynecology
DX: O36.8130 Decreased fetal movements, third trimester, not applicable or unspecified (principal); Z3A.37 37 weeks gestation of pregnancy
CPT/HCPCS: 99212

== ENCOUNTER 2020-06-26 10:23 | Outpatient (CLI) | payer OTHER ==
[2020-06-26 11:16] LABS: BASOPHILS # (AUTO) 0.1 10^3/uL (0.0-0.1); BASOPHILS % (AUTO) 0.6 %; EOSINOPHILS # (AUTO) 0.3 10^3/uL (0.0-0.7); EOSINOPHILS % (AUTO) 2.5 %; HGB - HEMOGLOBIN 10.8 g/dL (12.0-16.0); LYMPHOCYTES # (AUTO) 2.7 10^3/uL (1.5-3.5); LYMPHOCYTES % (AUTO) 21.5 %; MEAN CORPUSCULAR HEMOGLOBIN 24.6 pg (27.0-31.0); MEAN CORPUSCULAR HGB CONC 30.9 g/dL (32.0-36.0); MEAN CORPUSCULAR VOLUME 79.5 fL (81.0-99.0); MEAN PLATELET VOLUME 9.3 fL (7.9-10.8); MONOCYTES # (AUTO) 0.9 10^3/uL (0.0-1.0); MONOCYTES % (AUTO) 7.6 %; NEUTROPHILS # (AUTO) 8.2 10^3/uL (1.5-6.6); PLT - PLATELET COUNT 284 10^3/uL (130-450); RED BLOOD COUNT 4.39 10^6/uL (4.20-5.40); RED CELL DISTRIBUTION WIDTH 14.6 % (12.0-15.0); WHITE BLOOD COUNT 12.4 x10^3/uL (4.8-10.8)
[2020-06-26 11:22] LABS: CREATININE,URINE 70.4 mg/dL; PROTEIN/CREATININE RATIO,URINE 0.2 (<=0.2)
[2020-06-26 11:25] LABS: ALBUMIN/GLOBULIN RATIO 0.8 (1.0-2.2); BILIRUBIN,TOTAL 0.7 mg/dL (0.2-1.0); CREATININE 0.6 mg/dL (0.4-1.0); TOTAL PROTEIN 6.8 g/dL (6.7-8.2)
[2020-06-26 12:03] VITALS: BP 126/92
--- NOTE | 2020-07-04 14:48 | PROCEDURE REPORT ---
- HPI Diagnosis/Indication for NST: Gestational Hypertension (BP all normal) Current EDU 07/08/20 Gestation 38 Weeks and 2 Days 4 Para 3 Vital Signs Temperature 37.0 C 06/26/20 10:38 Heart Rate 107 H 06/26/20 10:38 Respiratory Rate 20 06/26/20 10:38 Blood Pressure 125/92 H 06/26/20 10:38 O2 Saturation 100 06/26/20 10:38 Temperature 37.0 C 06/26/20 10:38 Heart Rate 130 H 06/26/20 11:45 Respiratory Rate 18 06/26/20 11:45 Blood Pressure 126/92 H 06/26/20 11:45 O2 Saturation 99 06/26/20 11:00 - NST Procedure NST Procedure Start Date 06/26/20 Start Time 10:36 Stop Time 11:30 Vibroacoustic Stimulation Used No Patient States Movement Yes - Results and Plan Findings/Impression: Normal BP Reactive NST Plan: continue Antinatal testing
== END 2020-06-26 11:45 | disposition home or self-care (01) ==
LOC: WFO 10:23 → FBP 10:27 → WFO 11:45
PROVIDERS: ATTEND Obstetrics & Gynecology
DX: O13.3 Gestational [pregnancy-induced] hypertension without significant proteinuria, third trimester (principal); Z3A.38 38 weeks gestation of pregnancy
CPT/HCPCS: 36415; 59025; 80053; 82570; 84156; 85025

== ENCOUNTER 2020-06-30 18:44 | Outpatient (CLI) | payer OTHER ==
[2020-06-30] MEDS ORDERED: oxyCODONE 5 MG TABLET PO ONE (19:34)
[2020-06-30 19:39] VITALS: BP 133/87
--- NOTE | 2020-07-04 14:51 | PROCEDURE REPORT ---
- HPI Diagnosis/Indication for NST: Gestational Hypertension Vital Signs Heart Rate 121 H 06/30/20 19:00 Respiratory Rate 18 06/30/20 19:00 Blood Pressure 133/87 H 06/30/20 19:00 O2 Saturation 99 06/30/20 19:00 Temperature Heart Rate 121 H 06/30/20 19:00 Respiratory Rate 18 06/30/20 19:00 Blood Pressure 133/87 H 06/30/20 19:00 O2 Saturation 99 06/30/20 19:00 - NST Procedure NST Procedure Start Time 10:36 Stop Time 11:30 - Results and Plan Findings/Impression: reactive NST Plan: Continue Antinatal testing
== END 2020-06-30 20:05 | disposition home or self-care (01) ==
LOC: WFO 18:44 → FBP 18:46 → WFO 20:05
PROVIDERS: ATTEND Obstetrics & Gynecology
DX: O13.9 Gestational [pregnancy-induced] hypertension without significant proteinuria, unspecified trimester (principal); Z3A.00 Weeks of gestation of pregnancy not specified
CPT/HCPCS: 59025; A9270

== ENCOUNTER 2021-06-25 11:28 | Outpatient (CLI) | payer OTHER ==
--- NOTE | 2021-06-25 12:19 | XRAY Report ---
PROCEDURE: Foot 3 View RT INDICATIONS: Right heel pain. TECHNIQUE: 3 views of the foot were acquired. COMPARISON: None. FINDINGS: BONES: No acute, displaced fracture or dislocation. Minimal hallux valgus deformity. A sclerotic focus is seen in the second middle phalanx, likely reflecting a bone island. SOFT TISSUES: No focal abnormality. IMPRESSION: 1.No acute osseous abnormality. Reviewed by: Stewart Garza MD on 06/25/2021 12:18 PM PDT Approved by: Stewart Garza MD on 06/25/2021 12:18 PM PDT Station ID: [id number]
== END 2021-06-25 23:59 ==
LOC: DI.N 11:28
PROVIDERS: ATTEND Family Medicine
DX: M79.671 Pain in right foot (principal)